=== PATIENT | male | born 1980 | race Caucasian/White ===

== ENCOUNTER → 2025-02-25 12:39 | Outpatient (CLI) | payer OTHER, SELFPAY ==
--- NOTE | 2025-02-25 12:46 | DI.ECHO.S_ITS ---
[facility] : : [address] : : [place] : : [id number] : : Phone: [phone] Echocardiogram Report + + :Name: SELVIN RAYMUNDO Study Date: 02/25/2025 Height: 67 in : :Hospital ReadingLocation: Weight: 188 lb : : Gender: Male BSA: 2.0 m2 : :: 1980 Age: 44 yrs BP: 165/106 mmHg: :Reason For Study: CARDIAC INJURY : :Ordering Physician: GRIS, : :SERGEI Performed By: Enio Wong : :Referring: [id number] : + + Interpretation Summary The ejection fraction is estimated to be 60-65%. There is no pericardial effusion. There is no significant valvular heart disease. Procedure: A two-dimensional transthoracic echocardiogram with color flow and Doppler was performed. The study quality was technically good. There is no prior echocardiogram noted for this patient. The patient was in normal sinus rhythm during the exam. Left Ventricle: The left ventricle is normal in size. There is normal left ventricular wall thickness. There is no ventricular septal defect visualized. The ejection fraction is estimated to be 60-65%. There are no focal wall motion abnormalities. Diastolic parameters suggest probable normal left ventricular diastolic function and normal filling pressures. Right Ventricle: The right ventricle is grossly normal size. The right ventricular systolic function is normal. Atria: The left atrial size is normal. Right atrial size is normal. There is no Doppler evidence for an interatrial shunt. Mitral Valve: The mitral valve leaflets appear normal. There is no evidence of stenosis, fluttering, or prolapse. There is no mitral regurgitation noted. Aortic Valve: The aortic valve is trileaflet. The aortic valve opens well. No aortic regurgitation is present. Tricuspid Valve: The tricuspid valve leaflets are thin and pliable. No tricuspid regurgitation. Pulmonic Valve: The pulmonic valve leaflets are thin and pliable; valve motion is normal. There is no pulmonic valvular regurgitation. Great Vessels: The aortic root is normal size. The dimensions of the ascending aorta are normal. The pulmonary artery is normal size. The IVC is of normal diameter and collapses greater than 50% with a sniff. This suggests a low right atrial pressure of 3 mm Hg. Pericardium/ Pleura There is no pericardial effusion. There is no pleural effusion. MMode/2D Measurements & Calculations LVIDd: 4.9 cm LVOT diam: 2.1 cm LVIDs: 2.9 cm Ao root diam: 3.1 cm FS: 40.0 % asc Aorta Diam: 3.4 cm EPSS: 0.77 cm IVSd: 0.76 cm LVPWd: 1.0 cm LV strauss. diameter/BSA (cm/m^2): 2.5 LV sys. diameter/BSA (cm/m^2): 1.5 LA A2 area: 14.7 cm2 RA long axis: 3.7 cm LA A4 area: 15.0 cm2 RA area: 7.6 cm2 LA length (vol): 4.4 cm RA vol: 13.4 ml LA vol: 42.3 ml RA : 6.8 ml/m2 LA vol index: 21.5 ml/m2 TAPSE: 2.3 cm Doppler Measurements & Calculations Ao V2 max: 166.2 cm/sec LVOT Max Pierre: 119.6 cm/sec Ao V2 mean: 106.6 cm/sec LV V1 max P.7 mmHg Ao max P.1 mmHg LV V1 VTI: 21.4 cm Ao mean P.3 mmHg LINA(I,D): 2.5 cm2 Ao V2 VTI: 28.4 cm LINA(V,D): 2.4 cm2 sev ratio: 0.76 LINA indexed to BSA (cm^2/m^2): 1.3 MV E max pierre: 79.1 cm/sec PA V2 max: 97.0 cm/sec MV A max pierre: 69.7 cm/sec PA V2 mean: 72.5 cm/sec MV E/A: 1.1 PA mean P.3 mmHg Med Peak E' Pierre: 8.9 cm/sec PA pr(Accel): 17.3 mmHg E/E' med: 8.9 Lat Peak E' Pierre: 9.9 cm/sec E/E' lat: 8.0 E/e' average: 8.4 MV dec time: 0.18 sec SV(LVOT): 72.0 ml Reading Physician:01:28 PM
== END ==
PROVIDERS: Referring Provider Physician Assistant; Visit Provider Physician Assistant
DX: Z00.00 Encounter for general adult medical examination without abnormal findings (principal)
CPT/HCPCS: 93306